=== PATIENT | female | born 1960 | race Caucasian/White ===

== ENCOUNTER 2017-03-04 23:08 | Emergency (ER) | payer MEDICAID ==
[~2017-03-04] VITALS: Ht 160 cm; Wt 58.2 kg
[~2017-03-04 23:08] MED LIST: CLON-364 PO; EMBREL; ESCI20TA10 PO; HYDR200T PO; HYDR25TA6 PO; IBUP-1222; LEVO137C2 PO; OXYC10TA32 PO; SIMV20TA3 PO; TRAM50TA2; TRAZ50TA18 PO
[2017-03-04 23:09] VITALS: BP 138/96
[2017-03-05] MEDS ORDERED: IBUPROFEN 200 MG TABLET ONE (00:53)
[2017-03-05] MEDS ORDERED: IBUPROFEN 200 MG TABLET PO ONE (01:00)
== END 2017-03-05 01:00 | disposition home or self-care (01) ==
LOC: ED 23:59
DX: M79.601 Pain in right arm (principal); M13.0 Polyarthritis, unspecified; I10 Essential (primary) hypertension; E78.5 Hyperlipidemia, unspecified; E03.9 Hypothyroidism, unspecified; M06.9 Rheumatoid arthritis, unspecified
CPT/HCPCS: 99283

== ENCOUNTER 2017-04-24 03:21 | Emergency (ER) | payer MEDICAID | END 2017-04-24 04:55 | disposition home or self-care (01) | LOC: ED 03:54 | DX: G56.01 Carpal tunnel syndrome, right upper limb (principal); E03.9 Hypothyroidism, unspecified | CPT/HCPCS: 99283 ==

== ENCOUNTER 2017-08-04 04:55 | Emergency (ER) | payer MEDICAID ==
[~2017-08-04] VITALS: Ht 160 cm; Wt 63.9 kg
[~2017-08-04 04:55] MED LIST changes: -OXYC10TA32 PO; +OXYC10TA47 PO
[2017-08-04] MEDS ORDERED: SODIUM CHLORIDE FLUSH 10ML SYR IVF ONE (05:30)
[2017-08-04] MEDS ORDERED: SODIUM CHLORIDE 0.9% 1,000ML IVBOLUS ONE (05:30)
[2017-08-04] MEDS ORDERED: ASPIRIN 81 MG TABLET CHEW PO ONE (05:30)
[2017-08-04] MEDS ORDERED: ASPIRIN 81 MG TABLET CHEW ONE (05:37)
[2017-08-04 05:54] LABS: HEMATOCRIT 37.8 % (34.6-47.8); HEMOGLOBIN 12.8 g/dL (11.7-16.4); WHITE BLOOD COUNT 11.4 x10^3/uL (3.4-10)
[2017-08-04 06:07] LABS: ASPARTATE AMINO TRANSFERASE 11 U/L (15-37); BLOOD UREA NITROGEN 16 mg/dL (7-18)
[2017-08-04 06:12] LABS: IS PT STATUS REG ER OR PRE ER? YES
[2017-08-04] MEDS ORDERED: OMNIPAQUE 350 MG/ML, 100ML BOTTLE ONE (06:51)
[2017-08-04 07:42] VITALS: BP 123/79
== END 2017-08-04 07:44 | disposition home or self-care (01) ==
LOC: ED 05:51
DX: R07.89 Other chest pain (principal); I10 Essential (primary) hypertension; E78.5 Hyperlipidemia, unspecified; I25.2 Old myocardial infarction; E03.9 Hypothyroidism, unspecified
CPT/HCPCS: 36415; 71010; 71275; 80053; 83690; 84484; 85025; 85379; 85610; 93005; 96360; 99285; J7030; Q9967